=== PATIENT | female | born 1965 | race African-American/Black ===

== ENCOUNTER → 2016-09-22 | Outpatient (CLI) | payer OTHER ==
[~2016-09-22] MED LIST: ALBU0.63 NEB; ALBU18HF INH; AMLO5TAB2 PO; BECL8.7A6 INH; ENOX40SY4 SQ; FERR220S2 PO; FLUT1BLS INH; FLUT1DIS3 INH; IPRA3AMP NPPB; LISI-170 PO; LISI5TAB7 PO; PRED10TA PO; PRED20TA PO
== END | disposition home or self-care (01) ==
LOC: EDSTATUS 08:00 → CFH 08:10
PROVIDERS: ATTEND Family Medicine
DX: Z12.31 Encounter for screening mammogram for malignant neoplasm of breast (principal); C08.9 Malignant neoplasm of major salivary gland, unspecified
CPT/HCPCS: 76536; 77063; G0202